=== PATIENT | female | born 1980 | race Caucasian/White ===

== ENCOUNTER 2017-05-07 09:04 | Inpatient (IN) | payer BC ==
[2017-05-07] MEDS ORDERED: Sodium Chloride 0.9% 10 ML Syringe FLUSH PRN (09:31)
[2017-05-07] MEDS ORDERED: Lidocaine 1% 50 ML MDV INJECT ONE (09:31)
[2017-05-07] MEDS ORDERED: Nalbuphine 20 MG/1 ML Amp IVPUSH PRN (09:31)
[2017-05-07] MEDS ORDERED: Ondansetron 4 MG/2 ML SDV IVPUSH PRN (09:31)
[2017-05-07] MEDS ORDERED: Lactated Ringers 1,000 ML ONE (09:33)
[2017-05-07] MEDS ORDERED: Oxytocin/Lactated Ringers 10 UNIT/1,000 ML BAG IV ONE (09:33)
[2017-05-07] MEDS ORDERED: Lactated Ringers 1,000 ML IV SCH (09:45)
[2017-05-07] MEDS ORDERED: Oxytocin/Lactated Ringers 10 UNIT/1,000 ML BAG IV SCH (09:45)
--- NOTE | 2017-05-07 10:11 | PCM.LDHP ---
L&D History of Present Illness - General Date of Service: 05/07/17 Admit Problem/Dx: Patient Status Order with Admit Dx/Problem 05/07/17 09:31 Patient Status [ADT] Routine Admission Diagnosis/Problem Admission Diagnosis/Problem Normal labor 05/07/17 10:02 active labor 36 yo at 39 weeks 5 days gestation presents to labor and delivery in active labor. contractions have been intermittent for the past 24 hours. She has no leakage of fluid. Good movement. no leakage of fluid. no vaginal bleeding regular and routine care. Measuring large for dates with ultrasound at 37 weeks measuring fetus at 3500 grams and >90th percentile. 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 [employer] History: Reports: Other OB/BYN History: HPV - Past Surgical History HEENT Surgical History: Reports: Adenoidectomy, Tonsillectomy Cardiovascular Surgical History: Reports: None Social & Family History - Family History Family Medical History: Noncontributory - Tobacco Use Smoking Status *Q: Never Smoker Second Hand Smoke Exposure: No - Alcohol Use Days Per Week of Alcohol Use: 0 - Recreational Drug Use Recreational Drug Use: No H&P Review of Systems - Review of Systems: Review Of Systems: See Below General: Reports: No Symptoms HEENT: Reports: No Symptoms Pulmonary: Reports: No Symptoms Cardiovascular: Reports: No Symptoms Gastrointestinal: Reports: No Symptoms Genitourinary: Reports: No Symptoms Musculoskeletal: Reports: No Symptoms Skin: Reports: No Symptoms Psychiatric: Reports: No Symptoms Neurological: Reports: No Symptoms Hematologic/Lymphatic: Reports: No Symptoms Immunologic: Reports: No Symptoms L&D Exam - Exam Exam: See Below - Vital Signs Vital Signs: Last Vital Signs Temp 36.7 C 05/07/17 09:31 Pulse 84 05/07/17 09:31 Resp BP 125/80 05/07/17 09:31 Pulse Ox Weight: 85.729 kg - OB Specific Contraction Intensity: Moderate to Strong Movement: Active Heart Tones: Present Heart Tones per Min: 130 Heart Rate (FHR) Variability: Moderate (6-25 bmp) Presentation: Vertex Estimated Weight: 4000 - Marie Score Marie Score Cervix Position: Posterior Marie Score Consistency: Soft Marie Score Effacement: 51-70% Marie Score Dilation: > 5 cm - Exam General: Alert Rectal Exam: Normal Exam Extremities: Normal Inspection Skin: Warm, Dry Psychiatric: Alert Problem List Initiated/Reviewed/Updated: Yes Orders Last 24hrs: Active Orders 24 hr Category Date Time Status Patient Status [ADT] Routine ADT 05/07/17 09:31 Active Activity as Tolerated [RC] PFP Care 05/07/17 09:31 Active Communication Order [RC] ASDIRECTED Care 05/07/17 09:31 Active Notify Provider [RC] PFP Care 05/07/17 09:31 Active Notify Provider [RC] PRN Care 05/07/17 09:31 Active Peripheral IV Care [RC] . DIRECTED Care 05/07/17 09:31 Active Vital Signs [RC] PER UNIT ROUTINE Care 05/07/17 09:31 Active Regular Diet [DIET] Diet 05/07/17 Breakfast Active CBC WITH AUTO DIFF [HEME] Routine Lab 05/07/17 09:54 Received Lactated Ringers [Ringers, Lactated] 1,000 ml Med 05/07/17 09:45 Active IV ASDIRECTED Nalbuphine [Nubain] Med 05/07/17 09:31 Active 10 mg IVPUSH Q2H PRN Ondansetron [Zofran] Med 05/07/17 09:31 Active 4 mg IVPUSH Q4H PRN Oxytocin/Lactated Ringers [Pitocin in LR 10 Units/1,000 Med 05/07/17 09:45 Active ML] 10 unit in 1,000 ml IV ASDIRECTED Sodium Chloride 0.9% [Saline Flush] Med 05/07/17 09:31 Active 10 ml FLUSH ASDIRECTED PRN Electronic Heart Tones Ext w TOCO [WOMSER] Oth 05/07/17 09:31 Ordered Routine Electronic Heart Tones Internal [WOMSER] Per Unit Oth 05/07/17 09:31 Ordered Routine Peripheral IV Insertion Adult [OM.PC] Routine Oth 05/07/17 09:31 Ordered Resuscitation Status Routine Resus Stat 05/07/17 09:31 Ordered Medication Orders Lactated Ringer's (Ringers, Lactated) 1,000 mls @ 100 mls/hr IV ASDIRECTED HELIO Oxytocin/Lactated Ringer's (Pitocin In Lr 10 Units/1,000 Ml) 10 unit in 1,000 mls @ 500 mls/hr IV ASDIRECTED HELIO PRN Reason: Protocol Nalbuphine HCl (Nubain) 10 mg IVPUSH Q2H PRN PRN Reason: Pain (moderate 4-6) Ondansetron HCl (Zofran) 4 mg IVPUSH Q4H PRN PRN Reason: Nausea/Vomiting Sodium Chloride (Saline Flush) 10 ml FLUSH ASDIRECTED PRN PRN Reason: Keep Vein Open Assessment/Plan Comment:: 36 yo in active labor. GBS negative O positive. plans for natural labor pain management. anticipate LGA infant. routine labor management.
[2017-05-07] MEDS ORDERED: Lidocaine 1% 50 ML MDV ONE (11:34)
--- NOTE | 2017-05-07 12:07 | PCM.DEL ---
L & D Note - General Info Date of Service: 05/07/17 Mother's Due Date: 05/09/17 - Delivery Note Labor: Spontaneous Delivery Outcome: Livebirth Infant Delivery Method: Spontaneous Vaginal Delivery-Single Presentation: Vertex Nuchal Cord: None Anesthesia Type: None Laceration: 2nd Degree Suture type: Vicryl Suture size: 3-0 Placenta: Spontaneous Cord: 3 Vessels Estimated Blood Loss: 400 Resuscitation Needed: No Score 1 min: 8 Score 5 min: 9 Delivery Comments (Free Text/Narrative):: 36 yo G3 now P3 delivered a viable male infant at 39 weeks 5 days gestation via spontaneous vaginal delivery with no anesthesia to a sterile field. there was no nuchal cord. Apgars 8 and 9. weight 8lbs 13 ounces. Mother GBS negative and O positive. EBL 400 ml. and mother in recovery room in stable condition. - Patient Data Vitals - Most Recent: Last Vital Signs Temp 36.7 C 05/07/17 09:31 Pulse 84 05/07/17 09:31 Resp BP 125/80 05/07/17 09:31 Pulse Ox Weight - Most Recent: 85.729 kg Lab Results Last 24 Hours: Laboratory Results - last 24 hr 05/07/17 Range/Units 09:54 WBC 9.26 (3.98-10.04) K/mm3 RBC 4.11 (3.98-5.22) M/mm3 Hgb 13.2 (11.2-15.7) gm/L Hct 37.5 (34.1-44.9) % MCV 91.2 (79.4-94.8) fl MCH 32.1 (25.6-32.2) pg MCHC 35.2 (32.2-35.5) g/dl RDW Std Deviation 40.8 (36.4-46.3) fL Plt Count 121 L (182-369) K/mm3 MPV 11.7 (9.4-12.3) fl Neut % (Auto) 80.4 H (34.0-71.1) % Lymph % (Auto) 11.3 L (19.3-51.7) % [place] % (Auto) 7.2 (4.7-12.5) % Eos % (Auto) 0.1 L (0.7-5.8) Baso % (Auto) 0.2 (0.1-1.2) % Neut # (Auto) 7.44 H (1.56-6.13) K/mm3 Lymph # (Auto) 1.05 L (1.18-3.74) K/mm3 [place] # (Auto) 0.67 H (0.24-0.36) K/mm3 Eos # (Auto) 0.01 L (0.04-0.36) K/mm3 Baso # (Auto) 0.02 (0.01-0.08) K/mm3 Med Orders - Current: Current Medications Lactated Ringer's (Ringers, Lactated) 1,000 mls @ 100 mls/hr IV ASDIRECTED [facility] Last Admin: 05/07/17 09:20 Dose: 100 mls/hr Oxytocin/Lactated Ringer's (Pitocin In Lr 10 Units/1,000 Ml) 10 unit in 1,000 mls @ 500 mls/hr IV ASDIRECTED [facility] PRN Reason: Protocol Last Admin: 05/07/17 11:34 Dose: 500 mls/hr Nalbuphine HCl (Nubain) 10 mg IVPUSH Q2H PRN PRN Reason: Pain (moderate 4-6) Ondansetron HCl (Zofran) 4 mg IVPUSH Q4H PRN PRN Reason: Nausea/Vomiting Sodium Chloride (Saline Flush) 10 ml FLUSH ASDIRECTED PRN PRN Reason: Keep Vein Open Discontinued Medications Lactated Ringer's (Ringers, Lactated) Confirm Administered Dose 1,000 mls @ as directed .ROUTE .STK-MED ONE Stop: 05/07/17 09:34 Last Admin: 05/07/17 11:58 Dose: Not Given Oxytocin/Lactated Ringer's (Pitocin In Lr 10 Units/1,000 Ml) Confirm Administered Dose 10 unit in 1,000 mls @ as directed IV .STK-MED ONE Stop: 05/07/17 09:34 Last Admin: 05/07/17 11:57 Dose: Not Given Lidocaine HCl (Xylocaine 1%) 50 ml INJECT ONETIME ONE Stop: 05/07/17 09:32 Last Admin: 05/07/17 11:56 Dose: 50 ml Lidocaine HCl (Xylocaine 1%) Confirm Administered Dose 50 ml .ROUTE .STK-MED ONE Stop: 05/07/17 11:35 Last Admin: 05/07/17 11:56 Dose: Not Given - Problem List Review Problem List Initiated/Reviewed/Updated: Yes - My Orders Last 24 Hours: My Active Orders 05/07/17 09:31 Patient Status [ADT] Routine Activity as Tolerated [RC] PFP Communication Order [RC] ASDIRECTED Notify Provider [RC] PFP Notify Provider [RC] PRN Peripheral IV Care [RC] . DIRECTED Vital Signs [RC] PER UNIT ROUTINE Nalbuphine [Nubain] 10 mg IVPUSH Q2H PRN Ondansetron [Zofran] 4 mg IVPUSH Q4H PRN Sodium Chloride 0.9% [Saline Flush] 10 ml FLUSH ASDIRECTED PRN Electronic Heart Tones Ext w TOCO [WOMSER] Routine Electronic Heart Tones Internal [WOMSER] Per Unit Routine Peripheral IV Insertion Adult [OM.PC] Routine Resuscitation Status Routine 05/07/17 09:45 Lactated Ringers [Ringers, Lactated] 1,000 ml IV ASDIRECTED Oxytocin/Lactated Ringers [Pitocin in LR 10 Units/1,000 ML] 10 unit in 1,000 ml IV ASDIRECTED 05/07/17 Breakfast Regular Diet [DIET] - Plan Plan:: 36 yo in active labor. GBS negative O positive. plans for natural labor pain management. anticipate LGA . routine labor management.
[2017-05-07] MEDS ORDERED: Benzocaine/Menthol 20%-0.5% Spray 56 GM Canister TOP PRN (15:03)
[2017-05-07] MEDS ORDERED: Docusate Sodium 100 MG Cap PO PRN (15:03)
[2017-05-07] MEDS ORDERED: Ibuprofen 800 MG Tab PO PRN (15:03)
[2017-05-07] MEDS ORDERED: Witch Hazel Medicated Pads 100/Jar TOP PRN (15:03)
[2017-05-07] MEDS ORDERED: Lanolin 100% Cream 7 GM Tube TOP PRN (15:03)
[2017-05-07] MEDS: Prenatal Multivitamin with Calcium/Folic Acid/Iron Tab PO SCH (15:14)
--- NOTE | 2017-05-08 07:22 | PCM.DCSUM1 ---
Discharge Summary - Hospital Course Free Text/Narrative:: 36 yo at PPD #1 s/p NVD. No complications. exam unremarkable. Discharge to home today. - Discharge Data Discharge Date: 05/08/17 Discharge Disposition: Home, Self-Care 01 Condition: Good - Discharge Diagnosis/Problem(s) (1) Vaginal delivery SNOMED Code(s): 024600029 ICD Code: O80 - ENCOUNTER FOR FULL-TERM UNCOMPLICATED DELIVERY Status: Acute Current Visit: Yes - Patient Instructions Diet: Usual Diet as Tolerated Activity: As Tolerated Driving: May Drive Today Showering/Bathing: May Shower Notify Provider of: Fever, Increased Pain, Nausea and/or Vomiting Other/Special Instructions: Pelvic rest for 6 weeks - Discharge Plan Home Medications: Home Meds Vit W-Ca,Fe,FA(<1 mg) [ Vitamins] 1 each PO DAILY 05/07/17 [ History] Benzocaine/Menthol [Dermoplast [facility] Relief [place]] 1 applic TOP ASDIRECTED PRN canister 05/08/17 [Rx] Docusate Sodium [Colace] 100 mg PO BID PRN cap 05/08/17 [Rx] Ibuprofen [IJD: Ibuprofen] 800 mg PO Q6H PRN tablet 05/08/17 [Rx] Lanolin [Lansinoh HPA] 1 applic TOP ASDIRECTED PRN tube 05/08/17 [Rx] Referrals: Cristiana Ferreira MD [Primary Care Provider] - (6-8 weeks ) - Discharge Summary/Plan Comment DC Time >30 min.: No - General Info Date of Service: 05/08/17 Functional Status: Reports: Pain Controlled, Tolerating Diet, Ambulating, Urinating - Review of Systems General: Reports: No Symptoms Pulmonary: Reports: No Symptoms Genitourinary: Reports: No Symptoms Psychiatric: Reports: No Symptoms - Patient Data Vitals - Most Recent: Last Vital Signs Temp 36.7 C 05/08/17 04:18 Pulse 74 05/08/17 04:18 Resp 16 05/08/17 04:18 BP 116/65 05/08/17 04:18 Pulse Ox 97 05/08/17 04:18 Weight - Most Recent: 85.729 kg I&O - Last 24 hours: Intake & Output 05/07/17 05/08/17 05/08/17 22:59 06:59 14:59 Intake Total 240 Balance 240 Lab Results - Last 24 hrs: Laboratory Results - last 24 hr 05/07/17 05/08/17 Range/Units 09:54 06:15 WBC 9.26 (3.98-10.04) K/mm3 RBC 4.11 (3.98-5.22) M/mm3 Hgb 13.2 12.1 (11.2-15.7) gm/L Hct 37.5 35.4 (34.1-44.9) % MCV 91.2 (79.4-94.8) fl MCH 32.1 (25.6-32.2) pg MCHC 35.2 (32.2-35.5) g/dl RDW Std Deviation 40.8 (36.4-46.3) fL Plt Count 121 L (182-369) K/mm3 MPV 11.7 (9.4-12.3) fl Neut % (Auto) 80.4 H (34.0-71.1) % Lymph % (Auto) 11.3 L (19.3-51.7) % [place] % (Auto) 7.2 (4.7-12.5) % Eos % (Auto) 0.1 L (0.7-5.8) Baso % (Auto) 0.2 (0.1-1.2) % Neut # (Auto) 7.44 H (1.56-6.13) K/mm3 Lymph # (Auto) 1.05 L (1.18-3.74) K/mm3 [place] # (Auto) 0.67 H (0.24-0.36) K/mm3 Eos # (Auto) 0.01 L (0.04-0.36) K/mm3 Baso # (Auto) 0.02 (0.01-0.08) K/mm3 Med Orders - Current: Current Medications Benzocaine/Menthol (Dermoplast [facility] Relief [place]) 0 gm TOP ASDIRECTED PRN PRN Reason: Perineal Comfort Measure Last Admin: 05/07/17 15:11 Dose: 1 can Docusate Sodium (Colace) 100 mg PO BID PRN PRN Reason: Constipation Emollient Ointment (Lansinoh Hpa) 0 gm TOP ASDIRECTED PRN PRN Reason: Sore Nipples Ibuprofen (Motrin) 800 mg PO Q6H PRN PRN Reason: Mild pain or fever Prenat Multivit/[place]/Iron/Folic Ac ( Plus Iron) 1 each PO DAILY [facility] Last Admin: 05/07/17 15:14 Dose: Not Given Kiera Wilder (Tucks) 1 pad TOP ASDIRECTED PRN PRN Reason: Hemorrhoid pain Last Admin: 05/07/17 15:11 Dose: 1 canister Discontinued Medications Lactated Ringer's (Ringers, Lactated) 1,000 mls @ 100 mls/hr IV ASDIRECTED [facility] Last Admin: 05/07/17 09:20 Dose: 100 mls/hr Oxytocin/Lactated Ringer's (Pitocin In Lr 10 Units/1,000 Ml) 10 unit in 1,000 mls @ 500 mls/hr IV ASDIRECTED [facility] PRN Reason: Protocol Last Admin: 05/07/17 11:34 Dose: 500 mls/hr Lactated Ringer's (Ringers, Lactated) Confirm Administered Dose 1,000 mls @ as directed .ROUTE .STK-MED ONE Stop: 05/07/17 09:34 Last Admin: 05/07/17 11:58 Dose: Not Given Oxytocin/Lactated Ringer's (Pitocin In Lr 10 Units/1,000 Ml) Confirm Administered Dose 10 unit in 1,000 mls @ as directed IV .STK-MED ONE Stop: 05/07/17 09:34 Last Admin: 05/07/17 11:57 Dose: Not Given Lidocaine HCl (Xylocaine 1%) 50 ml INJECT ONETIME ONE Stop: 05/07/17 09:32 Last Admin: 05/07/17 11:56 Dose: 50 ml Lidocaine HCl (Xylocaine 1%) Confirm Administered Dose 50 ml .ROUTE .STK-MED ONE Stop: 05/07/17 11:35 Last Admin: 05/07/17 11:56 Dose: Not Given Nalbuphine HCl (Nubain) 10 mg IVPUSH Q2H PRN PRN Reason: Pain (moderate 4-6) Ondansetron HCl (Zofran) 4 mg IVPUSH Q4H PRN PRN Reason: Nausea/Vomiting Sodium Chloride (Saline Flush) 10 ml FLUSH ASDIRECTED PRN PRN Reason: Keep Vein Open - Exam General: Reports: Alert, Oriented GI/Abdominal Exam: Normal Bowel Sounds Extremities: No Pedal Edema Skin: Reports: Warm, Dry *Q Meaningful Use (DIS) - VTE *Q VTE Criteria *Q: - Stroke *Q Stroke Criteria *Q: - AMI *Q AMI Criteria *Q: - General Info Date of Service: 05/08/17 - Patient Data Vital Signs - Most Recent: Last Vital Signs Temp 36.7 C 05/08/17 04:18 Pulse 74 05/08/17 04:18 Resp 16 05/08/17 04:18 BP 116/65 05/08/17 04:18 Pulse Ox 97 05/08/17 04:18 Weight - Most Recent: 85.729 kg I&O - Last 24 Hours: Intake & Output 05/07/17 05/08/17 05/08/17 22:59 06:59 14:59 Intake Total 240 Balance 240 Lab Results - Last 24 Hours: Laboratory Results - last 24 hr 05/07/17 05/08/17 Range/Units 09:54 06:15 WBC 9.26 (3.98-10.04) K/mm3 RBC 4.11 (3.98-5.22) M/mm3 Hgb 13.2 12.1 (11.2-15.7) gm/L Hct 37.5 35.4 (34.1-44.9) % MCV 91.2 (79.4-94.8) fl MCH 32.1 (25.6-32.2) pg MCHC 35.2 (32.2-35.5) g/dl RDW Std Deviation 40.8 (36.4-46.3) fL Plt Count 121 L (182-369) K/mm3 MPV 11.7 (9.4-12.3) fl Neut % (Auto) 80.4 H (34.0-71.1) % Lymph % (Auto) 11.3 L (19.3-51.7) % [place] % (Auto) 7.2 (4.7-12.5) % Eos % (Auto) 0.1 L (0.7-5.8) Baso % (Auto) 0.2 (0.1-1.2) % Neut # (Auto) 7.44 H (1.56-6.13) K/mm3 Lymph # (Auto) 1.05 L (1.18-3.74) K/mm3 [place] # (Auto) 0.67 H (0.24-0.36) K/mm3 Eos # (Auto) 0.01 L (0.04-0.36) K/mm3 Baso # (Auto) 0.02 (0.01-0.08) K/mm3 Med Orders - Current: Current Medications Benzocaine/Menthol (Dermoplast [place] Relief [place]) 0 gm TOP ASDIRECTED PRN PRN Reason: Perineal Comfort Measure Last Admin: 05/07/17 15:11 Dose: 1 can Docusate Sodium (Colace) 100 mg PO BID PRN PRN Reason: Constipation Emollient Ointment (Lansinoh Hpa) 0 gm TOP ASDIRECTED PRN PRN Reason: Sore Nipples Ibuprofen (Motrin) 800 mg PO Q6H PRN PRN Reason: Mild pain or fever Prenat Multivit/[employer]/Iron/Folic Ac ( Plus Iron) 1 each PO DAILY [facility] Last Admin: 05/07/17 15:14 Dose: Not Given Kiera Wilder (Tucks) 1 pad TOP ASDIRECTED PRN PRN Reason: Hemorrhoid pain Last Admin: 05/07/17 15:11 Dose: 1 canister Discontinued Medications Lactated Ringer's (Ringers, Lactated) 1,000 mls @ 100 mls/hr IV ASDIRECTED [facility] Last Admin: 05/07/17 09:20 Dose: 100 mls/hr Oxytocin/Lactated Ringer's (Pitocin In Lr 10 Units/1,000 Ml) 10 unit in 1,000 mls @ 500 mls/hr IV ASDIRECTED [facility] PRN Reason: Protocol Last Admin: 05/07/17 11:34 Dose: 500 mls/hr Lactated Ringer's (Ringers, Lactated) Confirm Administered Dose 1,000 mls @ as directed .ROUTE .STK-MED ONE Stop: 05/07/17 09:34 Last Admin: 05/07/17 11:58 Dose: Not Given Oxytocin/Lactated Ringer's (Pitocin In Lr 10 Units/1,000 Ml) Confirm Administered Dose 10 unit in 1,000 mls @ as directed IV .STK-MED ONE Stop: 05/07/17 09:34 Last Admin: 05/07/17 11:57 Dose: Not Given Lidocaine HCl (Xylocaine 1%) 50 ml INJECT ONETIME ONE Stop: 05/07/17 09:32 Last Admin: 05/07/17 11:56 Dose: 50 ml Lidocaine HCl (Xylocaine 1%) Confirm Administered Dose 50 ml .ROUTE .STK-MED ONE Stop: 05/07/17 11:35 Last Admin: 05/07/17 11:56 Dose: Not Given Nalbuphine HCl (Nubain) 10 mg IVPUSH Q2H PRN PRN Reason: Pain (moderate 4-6) Ondansetron HCl (Zofran) 4 mg IVPUSH Q4H PRN PRN Reason: Nausea/Vomiting Sodium Chloride (Saline Flush) 10 ml FLUSH ASDIRECTED PRN PRN Reason: Keep Vein Open - Interaction Disposition, : Barrett in Room with Family Interaction: Holding Infant Feeding: Breastfed ; Nursed Well Support Person: - Recovery Exam Fundal Tone: Firm Fundal Level: 1 Fingerbreadths Below Umbilicus Fundal Placement: Midline Lochia Amount: Small Lochia Color: Rubra/Red Perineum Description: Other (see below) Other Perinuem Description: second degree with repair Episiotomy/Laceration: Approximated Bladder Status: Voiding - Exam General: Alert, Oriented Extremities: Normal Inspection Skin: Warm, Dry
[2017-05-08 12:50] VITALS: BP 115/93
[2017-05-08] MEDS: Prenatal Multivitamin with Calcium/Folic Acid/Iron Tab PO SCH (12:56)
== END 2017-05-08 12:30 | disposition home or self-care (01) | DRG 560 ==
LOC: JD.OBCHECK 09:04 → JD.OB 09:06 → JD.OBCHECK 09:30 → JD.OB 09:31 → OBSVTOIN 12:07
PROVIDERS: ADMIT Family Medicine; ATTEND Family Medicine
PROC: 10E0XZZ Delivery of Products of Conception, External Approach (ICD-10-PCS; principal; 2017-05-07)
PROC: 0KQM0ZZ Repair Perineum Muscle, Open Approach (ICD-10-PCS; 2017-05-07)
DX: O70.1 Second degree perineal laceration during delivery (principal); Z3A.39 39 weeks gestation of pregnancy; Z37.0 Single live birth
CPT/HCPCS: 36415; 59300; 59409; 85014; 85018; 85025; J2590; J7120